=== PATIENT | female | born 1980 | race Caucasian/White ===

== ENCOUNTER 2016-11-19 10:59 | Emergency (ER) | payer BC ==
[2016-11-19 11:19] VITALS: BP 135/81; PULSE 76; RESP 18; TEMP 98.3
[2016-11-19 11:57] LABS: Appearance,Urine Cloudy (Clear); Bacteria,Urine Few /hpf; Bilirubin,Urine 1+ (Negative); Glucose,Urine (UA) Negative (Negative); Ketones,Urine Negative (Negative); Leukocyte Esterase,Urine Large (Negative); Mucus,Urine Few /hpf; Nitrite,Urine Positive (Negative); Particle Count 11325; Protein,Urine Negative (Negative); RBC,Urine 7 /hpf (0-5); Specific Gravity,Urine 1.006 (1.001-1.035); Squamous Epithelial Cell,Urine 21 /hpf (0-4); UA Billing (MACRO vs. MICRO) MICRO; WBC,Urine 102 /hpf (0-5)
--- NOTE | 2016-11-19 12:05 | ED ---
Female Urogenital HPI - General Chief complaint: Urogenital Stated complaint: cant urinate Time Seen by Provider: 11/19/16 11:27 Source: patient, RN notes reviewed Mode of arrival: ambulatory Limitations: no limitations - History of Present Illness Initial comments: 36-year-old female presents emergency Department chief complaint dysuria. Patient states started last few days. Patient states that she has urinary frequency states that feels that she needs to always: Does not empty her bladder completely. Patient has no abdominal plain no flank pain no fever or chills. Patient offers no other complaints. Denies any chance . - Related Data Home Medications Medication Instructions Recorded Confirmed Azo 2 tab PO Q6H PRN 11/19/16 11/19/16 Cranberry Extract [Cranberry] 1,000 mg PO DAILY PRN 11/19/16 11/19/16 Previous Rx's Medication Instructions Recorded Ciprofloxacin HCl [Cipro] 500 mg PO Q12HR #14 tablet 11/19/16 Allergies Allergy/AdvReac Type Severity Reaction Status Date / Time No Known Allergies Allergy Verified 11/19/16 11:52 Review of Systems ROS Statement: Those systems with pertinent positive or pertinent negative responses have been documented in the HPI. ROS Other: All systems not noted in ROS Statement are negative. 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 Absent: respiratory distress, wheezes, rales, rhonchi, stridor Cardiovascular Exam: Present: regular rate, normal rhythm, normal heart sounds. Absent: systolic murmur, diastolic murmur, rubs, gallop, clicks GI/Abdominal exam: Present: soft, normal bowel sounds. Absent: distended, tenderness, guarding, rebound, rigid Back exam: Absent: CVA tenderness (R), CVA tenderness (L) Course Vital Signs 11/19/16 11:16 Temperature 98.3 F Pulse Rate 76 Respiratory 18 Rate Blood Pressure 135/81 Medical Decision Making - Lab Data Lab Results 11/19/16 11/19/16 Range/Units 11:37 11:37 Urine Color Dark Brown Urine Appearance Cloudy H (Clear) Urine pH 6.0 (5.0-8.0) Ur Specific [place] 1.006 (1.001-1.035) Urine Protein Negative (Negative) Urine Glucose (UA) Negative (Negative) Urine Ketones Negative (Negative) Urine Blood Trace H (Negative) Urine Nitrite Positive H (Negative) Urine Bilirubin 1+ H (Negative) Urine Urobilinogen 2.0 (<2.0) mg/dL Ur Leukocyte Esterase Large H (Negative) Urine RBC 7 H (0-5) /hpf Urine WBC 102 H (0-5) /hpf Urine WBC Clumps Few H (None) /hpf Ur Squamous Epith Cells 21 H (0-4) /hpf Urine Bacteria Few H (None) /hpf Urine Mucus Few H (None) /hpf Urine HCG, Qual Not Detected (Not Detectd) Disposition Clinical Impression: Urinary tract infection Disposition: HOME SELF-CARE Condition: Stable Instructions: Urinary Tract Infection in Women (ED) Additional Instructions: Please return to the Emergency Department if symptoms worsen or any other concerns. Prescriptions: Ciprofloxacin HCl [Cipro] 500 mg PO Q12HR #14 tablet Time of Disposition: 12:04
== END 2016-11-19 12:18 | disposition home or self-care (01) ==
LOC: EC 10:59
DX: N39.0 Urinary tract infection, site not specified (principal); F17.200 Nicotine dependence, unspecified, uncomplicated
CPT/HCPCS: 81001; 81025; 87077; 87086; 87186; 99283

== ENCOUNTER 2018-12-19 17:21 | Emergency (ER) | payer BC, OTHER ==
[2018-12-19 17:39] VITALS: BP 143/87; PULSE 71; RESP 16; TEMP 98.3
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
== END 2018-12-19 19:01 | disposition home or self-care (01) ==
LOC: EC 17:21
DX: S01.512A Laceration without foreign body of oral cavity, initial encounter (principal); Z87.891 Personal history of nicotine dependence; Z88.2 Allergy status to sulfonamides; Z79.899 Other long term (current) drug therapy; W22.8XXA Striking against or struck by other objects, initial encounter; Y93.89 Activity, other specified
CPT/HCPCS: 99282

== ENCOUNTER 2019-03-26 10:58 | Emergency (ER) | payer OTHER ==
[2019-03-26 11:03] VITALS: RESP 18
--- NOTE | 2019-03-26 11:35 | ED ---
Female Urogenital HPI - General Chief complaint: Urogenital Stated complaint: UTI Time Seen by Provider: 03/26/19 11:03 Source: patient Mode of arrival: ambulatory Limitations: no limitations - History of Present Illness Initial comments: 38-year-old female presents for urgency frequency dysuria. Patient states she woke up yesterday with urinary tract symptoms. Patient denies any fevers back pain flank pain and groin pain abdominal pain. Patient states that she has no flulike symptoms or history of kidney stones. Patient states she is currently d emonstrating. Patient states when symptoms persisted today she presents a restaurant for further evaluation. Remaining review of system negative. Upon arrival patient appears well nontoxic no signs of acute distress. - Related Data Home Medications Medication Instructions Recorded Confirmed Cranberry Fruit Concentrate [Azo 250 mg PO HS PRN 03/26/19 03/26/19 Cranberry] Previous Rx's Medication Instructions Recorded Cephalexin [Keflex] 500 mg PO Q12HR 5 Days #10 cap 03/26/19 Allergies Allergy/AdvReac Type Severity Reaction Status Date / Time sulfamethoxazole Allergy Rash/Hives Verified 03/26/19 11:50 [From Bactrim] trimethoprim [From Bactrim] Allergy Rash/Hives Verified 03/26/19 11:50 Review of Systems ROS Statement: Those systems with pertinent positive or pertinent negative responses have been documented in the HPI. ROS Other: All systems not noted in ROS Statement are negative. 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 Eye: Pupils are equal, round and reactive to light, extra-ocular movements are intact. No nystagmus. There is normal conjunctiva bilaterally. No signs of icterus. Ears, nose, mouth and throat: There are moist mucous membranes and no oral les ions. Neck: The neck is supple, there is no tenderness or JVD. Cardiovascular: There is a regular rate and rhythm. No murmur, rub or gallop is appreciated. Respiratory: Lungs are clear to auscultation, respirations are non-labored, breath sounds are equal. No wheezes, stridor, rales, or rhonchi. Gastrointestinal: Soft, non-distended, non-tender abdomen without masses or organomegaly noted. There is no rebound or guarding present. No CVA tenderness. Bowel sounds are unremarkable. Musculoskeletal: Normal ROM, no tenderness. Strength 5/5. Sensation intact. Pulses equal bilaterally 2+. Neurological: A&O x 3. CN II-XII intact grossly (did not test scent), There are no obvious motor or sensory deficits. Coordination appears grossly intact. Speech is normal. Skin: Skin is warm and dry and no rashes or lesions are noted. Psychiatric: Cooperative, appropriate mood & affect, normal judgment. Limitations: no limitations Course Vital Signs 03/26/19 03/26/19 11:01 11:59 Temperature 97.5 F L 98.4 F Pulse Rate 70 68 Respiratory 18 18 Rate Blood Pressure 124/86 121/88 O2 Sat by Pulse 99 98 Oximetry Medical Decision Making - Medical Decision Making 38-year-old. Presents for dysuria urgency frequency. Patient states it feels like when she's had a UTI in the past. Patient is currently menstruating. Urinalysis is positive for nitrates significant white blood cells. There is rbc's noted. Patient denies any flank pain history of kidney stones groin pain. Patient appears nontoxic afebrile vital signs within a central limits. Patient be started on antibiotic regimen for 7 days. I discussed the importance of return parameters for any back flank pain or fevers. Patient verbalizes understanding. Patient was discharged appearing well after discussing case with Dr. Seo - Lab Data Lab Results 03/26/19 Range/Units 11:22 Urine Color Yellow Urine Appearance Cloudy H (Clear) Urine pH 6.5 (5.0-8.0) Ur Specific [place] 1.023 (1.001-1.035) Urine Protein 2+ H (Negative) Urine Glucose (UA) Negative (Negative) Urine Ketones Negative (Negative) Urine Blood Moderate H (Negative) Urine Nitrite Positive H (Negative) Urine Bilirubin Negative (Negative) Urine Urobilinogen <2.0 (<2.0) mg/dL Ur Leukocyte Esterase Large H (Negative) Urine RBC >182 H (0-5) /hpf Urine WBC >182 H (0-5) /hpf Urine WBC Clumps Rare H (None) /hpf Ur Squamous Epith Cells 2 (0-4) /hpf Amorphous Sediment Rare H (None) /hpf Urine Bacteria Occasional H (None) /hpf Urine Mucus Moderate H (None) /hpf Disposition Clinical Impression: UTI (urinary tract infection), Dysuria Disposition: HOME SELF-CARE Condition: Good Instructions (If sedation given, give patient instructions): Urinary Tract Infection in Women (ED) Prescriptions: Cephalexin [Keflex] 500 mg PO Q12HR 5 Days #10 cap Is patient prescribed a controlled substance at d/c from ED?: No Referrals: None,Stated [Primary Care Provider] - 1-2 days Time of Disposition: 11:35
[2019-03-26 11:40] LABS: Amorphous Sediment,Urine Rare /hpf; Appearance,Urine Cloudy (Clear); Bacteria,Urine Occasional /hpf; Bilirubin,Urine Negative (Negative); Blood,Urine Moderate (Negative); Color,Urine Yellow; Glucose,Urine (UA) Negative (Negative); Ketones,Urine Negative (Negative); Leukocyte Esterase,Urine Large (Negative); Mucus,Urine Moderate /hpf; Nitrite,Urine Positive (Negative); PH, Urine 6.5 (5.0-8.0); Protein,Urine 2+ (Negative); RBC,Urine >182 /hpf (0-5); Specific Gravity,Urine 1.023 (1.001-1.035); Squamous Epithelial Cell,Urine 2 /hpf (0-4); Urobilinogen,Urine <2.0 mg/dL (<2.0); WBC,Urine >182 /hpf (0-5)
[2019-03-26 12:00] VITALS: BP 121/88; PULSE 68; TEMP 98.4
== END 2019-03-26 12:00 | disposition home or self-care (01) ==
LOC: EC 10:58
DX: N39.0 Urinary tract infection, site not specified (principal); Z88.1 Allergy status to other antibiotic agents; Z88.2 Allergy status to sulfonamides; Z87.891 Personal history of nicotine dependence
CPT/HCPCS: 81001; 99283

== ENCOUNTER 2021-04-20 08:23 | Emergency (ER) | payer BC ==
--- NOTE | 2021-04-20 08:44 | ED ---
General Adult HPI - General Chief complaint: Urogenital Stated complaint: possible UTI Time Seen by Provider: 04/20/21 08:28 Source: patient, RN notes reviewed Mode of arrival: ambulatory Limitations: no limitations - History of Present Illness Initial comments: This is a 40-year-old female presents emergency Department with chief complaint of dysuria, urinary frequency. Patient states symptoms started yesterday she had she thought the abdominal cramping was from her menstrual cycle starting. Patient states that she woke up worsening urinary frequency dysuria no flank pain no fevers chills no nausea vomiting diarrhea constipation no chance . - Related Data Home Medications Medication Instructions Recorded Confirmed Cranberry Fruit Concentrate [Azo 250 mg PO HS PRN 03/26/19 03/26/19 Cranberry] Previous Rx's Medication Instructions Recorded Cephalexin [Keflex] 500 mg PO Q12HR 5 Days #10 cap 03/26/19 Cephalexin [Keflex] 500 mg PO Q8HR #21 cap 04/20/21 Allergies Allergy/AdvReac Type Severity Reaction Status Date / Time sulfamethoxazole Allergy Rash/Hives Verified 04/20/21 08:27 [From Bactrim] trimethoprim [From Bactrim] Allergy Rash/Hives Verified 04/20/21 08:27 Review of Systems ROS Statement: Those systems with pertinent positive or pertinent negative responses have been documented in the HPI. ROS Other: All systems not noted in ROS Statement are negative. 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 Absent: respiratory distress, wheezes, rales, rhonchi, stridor Cardiovascular Exam: Present: regular rate, normal rhythm, normal heart sounds. Absent: systolic murmur, diastolic murmur, rubs, gallop, clicks GI/Abdominal exam: Present: soft, normal bowel sounds. Absent: distended, tenderness, guarding, rebound, rigid Course Vital Signs 04/20/21 08:24 Temperature 97.8 F Pulse Rate 58 L Respiratory 18 Rate Blood Pressure 126/81 O2 Sat by Pulse 99 Oximetry Medical Decision Making - Medical Decision Making Urinalysis shows evidence of urinary tract infection. Patient did have moderate amount of blood prior to her mental cycle. Patient discharged on Keflex return parameters were discussed. - Lab Data Lab Results 04/20/21 Range/Units 08:39 Urine Color Yellow Urine Appearance Cloudy H (Clear) Urine pH 6.0 (5.0-8.0) Ur Specific [place] 1.022 (1.001-1.035) Urine Protein 1+ H (Negative) Urine Glucose (UA) Negative (Negative) Urine Ketones Negative (Negative) Urine Blood Large H (Negative) Urine Nitrite Negative (Negative) Urine Bilirubin Negative (Negative) Urine Urobilinogen <2.0 (<2.0) mg/dL Ur Leukocyte Esterase Large H (Negative) Urine RBC >182 H (0-5) /hpf Urine WBC >182 H (0-5) /hpf Ur Squamous Epith Cells 5 H (0-4) /hpf Urine Mucus Few H (None) /hpf Disposition Clinical Impression: Urinary tract infection Disposition: HOME SELF-CARE Condition: Stable Instructions (If sedation given, give patient instructions): Urinary Tract Infection in Women (ED) Additional Instructions: Please return to the Emergency Department if symptoms worsen or any other concerns. Prescriptions: Cephalexin [Keflex] 500 mg PO Q8HR #21 cap Is patient prescribed a controlled substance at d/c from ED?: No Referrals: Benjie Moreno MD [Primary Care Provider] - 1-2 days Time of Disposition: 09:09
[2021-04-20 09:00] LABS: Appearance,Urine Cloudy (Clear); Bilirubin,Urine Negative (Negative); Blood,Urine Large (Negative); Color,Urine Yellow; Glucose,Urine (UA) Negative (Negative); Ketones,Urine Negative (Negative); Leukocyte Esterase,Urine Large (Negative); Mucus,Urine Few /hpf; Nitrite,Urine Negative (Negative); Protein,Urine 1+ (Negative); RBC,Urine >182 /hpf (0-5); Specific Gravity,Urine 1.022 (1.001-1.035); Squamous Epithelial Cell,Urine 5 /hpf (0-4); Urobilinogen,Urine <2.0 mg/dL (<2.0); WBC,Urine >182 /hpf (0-5)
[2021-04-20 09:22] VITALS: BP 121/89; PULSE 69; RESP 15; TEMP 98.1
== END 2021-04-20 09:21 | disposition home or self-care (01) ==
LOC: EC 08:23
DX: N39.0 Urinary tract infection, site not specified (principal); F17.290 Nicotine dependence, other tobacco product, uncomplicated; Z88.1 Allergy status to other antibiotic agents; Z88.2 Allergy status to sulfonamides
CPT/HCPCS: 81001; 87086; 99283

== ENCOUNTER → 2024-06-17 | Outpatient (CLI) | payer BC ==
--- NOTE | 2024-06-17 11:19 | MM ---
Reason for Exam: Clinical finding. Last mammogram was performed 16 year(s) and 9 month(s) ago. Patient History: Menarche at age 12. First Full-Term at age 17. Perimenopausal. Bilateral Implants. Risk Values: [place] 5 year model risk: 0.5%. NCI Lifetime model risk: 7.1%. Tissue Density: The breasts are heterogeneously dense, which may obscure small masses. Findings: The pattern is symmetrical. Bilateral breast prostheses are present. No suspicious groups of microcalcifications, spiculated or lobular masses, architectural distortion or other secondary signs of malignancy are mammographically apparent. Overall Assessment: Negative, BI-RAD 1 Management: Screening Mammogram of both breasts in 1 year. A negative mammogram report should not preclude additional follow up of suspicious palpable abnormalities. Patient should continue monthly self breast exam. A clinical breast exam by your physician is recommended on an annual basis and results should be correlated with mammographic findings. Note on [place] scores and lifetime risk: 1. A [place] score greater than 3% is considered moderate risk. If this is the case, consider specialist referral to assess eligibility for a risk reducing agent. 2. If overall lifetime risk for the development of breast cancer is 20% or higher, the patient may qualify for future screening with alternating mammogram and breast MRI. [facility], , 06/17/2024 11:16 AM. Electronically signed and approved by: Uday Michaud D.O. Radiologis
== END | disposition home or self-care (01) ==
LOC: RADMAMWWP 10:42
PROVIDERS: ATTEND Family Medicine
DX: R92.333 Mammographic heterogeneous density, bilateral breasts (principal); N64.4 Mastodynia; Z98.82 Breast implant status
CPT/HCPCS: 77062; 77066